=== PATIENT | male | born 2000 | race African-American/Black ===

== ENCOUNTER 2020-07-17 16:46 | Outpatient (REF) | payer OTHER, SELFPAY | END 2020-07-17 16:47 | disposition home or self-care (01) | LOC: HO.LAB 16:46 | PROVIDERS: Visit Provider Internal Medicine | DX: Z20.828 Contact with and (suspected) exposure to other viral communicable diseases (principal) | CPT/HCPCS: C9803; U0003 ==

== ENCOUNTER 2022-11-03 15:29 | Emergency (ER) | payer OTHER, SELFPAY ==
--- NOTE | 2022-11-03 15:39 | ED.NAVMDI ---
HPI - Nausea/Vomiting/Diarrhea General Chief complaint: Nausea/Vomiting/Diarrhea <Gabrielle Butler CNP - Last Filed: 11/03/22 15:42> Stated complaint: Vomiting <Gabrielle Butler CNP - Last Filed: 11/03/22 15:42> Time Seen by Provider: 11/03/22 17:54 <Gabrielle Butler CNP - Last Filed: 11/03/22 15:42> Source: patient and family <AUBREE Abdalla Last Filed: 11/03/22 18:51> Mode of arrival: ambulatory <AUBREE Abdalla Last Filed: 11/03/22 18:51> History of Present Illness HPI Narrative: 22-year-old male with no significant past medical history presenting to the ED complaining of nausea, vomiting, and diarrhea since 08:00AM this morning. Reports about 15 episodes of emesis, ending with some bloody streaked emesis. Admits to marijuana use. Admits to eating [employer] last night. Denies abdominal pain, fever, chills, dysuria/hematuria, EtOH/other illicit substance use, sick contacts, recent travel <AUBREE Abdalla Last Filed: 11/03/22 18:51> MD elicited complaint: nausea and vomiting <AUBREE Abdalla Last Filed: 11/03/22 18:51> Onset (ago): hour(s) <AUBREE Abdalla Last Filed: 11/03/22 18:51> Related Data Home medications: Previous Rx's Medication Instructions Recorded ondansetron 4 mg disintegrating 4 mg PO Q8H PRN nausea and 11/03/22 tablet vomiting #10 tabs <Gabrielle Butler CNP - Last Filed: 11/03/22 15:42> Allergies/Adverse reactions: Allergies Allergy/AdvReac Type Severity Reaction Status Date / Time No Known Allergies Allergy Unverified 05/16/20 18:20 <Gabrielle Butler CNP - Last Filed: 11/03/22 15:42> Review of Systems Review of Systems: Constitutional: No Fever, No Chills, No Fatigue, No Malaise ENT/Mouth: No Ear Pain, No Nasal Congestion, No sore throat, No Rhinorrhea Eyes: No Eye Pain, No Swelling, No Redness, No Vision Changes Cardiovascular: No Chest Pain, No SOB, No Palpitations Respiratory: No Cough, No Sputum, No Dyspnea Gastrointestinal: + Nausea, + Vomiting, + Diarrhea, No Constipation, No Abdominal pain Genitourinary: No Dysuria, No Urinary Frequency, No Hematuria, No Urinary Incontinence/retention, No Flank Pain Musculoskeletal: No joint pain, No Myalgias Skin: No Skin Lesions, No rash Neuro: No Weakness, No Dizziness, No Headache <AUBREE Abdalla - Last Filed: 11/03/22 18:51> Yes all other systems are reviewed and are negative <AUBREE Abdalla - Last Filed: 11/03/22 18:51> Constitutional: Constitutional: Reports as per HPI <AUBREE Abdalla - Last Filed: 11/03/22 18:51> [facility] Past Medical History Attestation statement: The following information was validated with the patient. <AUBREE Abdalla - Last Filed: 11/03/22 18:51> Social History Social History: Social History Advance Directives: No Advance Directives Information Provided: No <Gabrielle Butler CNP - Last Filed: 11/03/22 15:42> Physical Exam Vital Signs: Vital Signs: Last Vital Signs Temp 97.7 F 11/03/22 18:00 Pulse 76 11/03/22 18:00 Resp 16 11/03/22 18:00 BP 122/65 11/03/22 18:00 Pulse Ox 98 11/03/22 18:00 O2 Del Method 11/03/22 18:00 BMI result Body Mass Index 21.9 <Gabrielle Butler CNP - Last Filed: 11/03/22 15:42> Vital Signs: Last Vital Signs Temp 97.7 F 11/03/22 18:00 Pulse 76 11/03/22 18:00 Resp 16 11/03/22 18:00 BP 122/65 11/03/22 18:00 Pulse Ox 98 11/03/22 18:00 O2 Del Method 11/03/22 18:00 BMI result Body Mass Index 21.9 <AUBREE Abdalla Last Filed: 11/03/22 18:51> Vital Signs: Last Vital Signs Temp 97.7 F 11/03/22 18:00 Pulse 76 11/03/22 18:00 Resp 16 11/03/22 18:00 BP 122/65 11/03/22 18:00 Pulse Ox 98 11/03/22 18:00 O2 Del Method 11/03/22 18:00 BMI result Body Mass Index 21.9 <AUBREE Cuadra - Last Filed: 11/03/22 22:01> Const: General: cooperative, healthy appearing and no acute distress <AUBREE Abdalla - Last Filed: 11/03/22 18:51> Orientation/consciousness: patient oriented x3 <AUBREE Abdalla - Last Filed: 11/03/22 18:51> Limitations: no limitations <AUBREE Abdalla - Last Filed: 11/03/22 18:51> HEENT: Head: Yes normal to inspection and Yes atraumatic <AUBREE Abdalla - Last Filed: 11/03/22 18:51> Ears: hearing grossly normal bilaterally <AUBREE Abdalla - Last Filed: 11/03/22 18:51> General nose exam: Normal external nose present <AUBREE Abdalla - Last Filed: 11/03/22 18:51> Face and sinus: Yes normal facial exam <AUBREE Abdalla - Last Filed: 11/03/22 18:51> Eyes: General: appearance normal, both eyes and all related structures <AUBREE Abdalla - Last Filed: 11/03/22 18:51> EOM: EOMs intact bilaterally <AUBREE Abdalla - Last Filed: 11/03/22 18:51> Neck: Neck: Yes normal visual inspection and Yes no meningeal signs <AUBREE Abdalla - Last Filed: 11/03/22 18:51> Resp: Effort & Inspection: normal respiratory effort and no respiratory distress <AUBREE Abdalla - Last Filed: 11/03/22 18:51> Cardio: Rate: regular rate <AUBREE Abdalla - Last Filed: 11/03/22 18:51> GI: Inspection: Yes normal to inspection <Linda Kaur PA - Last Filed: 11/03/22 18:51> Palpation (GI): Soft to palpation, nontender, no guarding and not rigid <Linda Kaur PA - Last Filed: 11/03/22 18:51> : General: Yes no CVA tenderness <Linda Colet, PA - Last Filed: 11/03/22 18:51> Back/Spine/Pelvis: Back: no CVA tenderness <Linda Pouliot, PA - Last Filed: 11/03/22 18:51> Skin: Rashes: no rashes <Linda Colet, PA - Last Filed: 11/03/22 18:51> Wounds: no wounds <Linda Pouljewelt, PA - Last Filed: 11/03/22 18:51> Neuro: General: patient oriented x3, tone normal and no meningeal signs <Linda Kaur PA - Last Filed: 11/03/22 18:51> Gait exam (Neuro): Normal gait present <Linda Kaur PA - Last Filed: 11/03/22 18:51> Extrem: General: Yes normal to inspection <Linda Kaur PA - Last Filed: 11/03/22 18:51> Course Course Course Narrative: This is an RME: Additional HPI, ROS, PE not included below will be deferred to primary provider. Awoke at 0830 with nausea and vomiting >15 times today. States unable to keep anything down today including fluids. Last ate [employer] 2330 last night. Denies fevers, chills, abdominal pain, URI symptoms, known sick contacts. He endorses marajuana usage daily, denies any history of cyclical vomiting. Plan: viral testing, urszula OROZCO, PO trial <Gabrielle Butler CNP - Last Filed: 11/03/22 15:42> This is an RME: Additional HPI, ROS, PE not included below will be deferred to primary provider. Awoke at 0830 with nausea and vomiting >15 times today. States unable to keep anything down today including fluids. Last ate [employer] 2330 last night. Denies fevers, chills, abdominal pain, URI symptoms, known sick contacts. He endorses marajuana usage daily, denies any history of cyclical vomiting. Plan: viral testing, urszula SL, PO trial -COVID-19 and influenza negative -1845--leukocytosis of 16.6 > likely reactive from nausea/vomiting. Hemoconcentrated with a hemoglobin of 18.2/Hct 52.4 -BUN elevated to 26 > consistent with dehydration, no anion gap. T bili 3.0 >> will give patient 2 L IVF prior to discharge. Encouraged p.o. intake. Patient is well-appearing at this time, tolerating p.o. water/Gatorade -1900--ED care transferred to [facility] pending IVF, UA, and anticipated discharge home Results discussed with patient including worrisome signs and symptoms and strict return precautions, and when to return to the emergency department. They verbalized understanding and feel safe for discharge at this time. <AUBREE Abdalla - Last Filed: 11/03/22 18:51> Reevaluation(s) Reevaluation #1: Patient's UA without infection. IV fluids completely done. Patient feeling better per nursing. Patient was educated on diagnosis and treatment plan all patient questions were answered. At this time patient will be discharged home, advised to return with new or worsening symptoms. Educated on worrisome signs and symptoms and when to return. At this time I feel comfortable discharge home. <AUBREE Cuadra - Last Filed: 11/03/22 22:01> Time: 22:01 <AUBREE Cuadra - Last Filed: 11/03/22 22:01> Medications Administered Discontinued Medications Generic Name Dose Route Start Last Admin Trade Name Freq PRN Reason Stop Dose Admin Lactated Ringer's 1,000 mls @ 999 mls/hr 11/03/22 18:45 11/03/22 21:56 Lr IV 11/03/22 19:45 Infused .Q1H1M YAMEL Infusion Lactated Ringer's 1,000 mls @ 999 mls/hr 11/03/22 19:00 11/03/22 21:56 Lr IV 11/03/22 20:00 Infused .Q1H1M YAMEL Infusion Ondansetron HCl 4 mg 11/03/22 15:40 11/03/22 16:28 Ondansetron Odt 4 Mg Tab.Rapdis TRANSLINGU 11/03/22 15:41 4 mg ONCE ONE Administration <Gabrielle Butler CNP - Last Filed: 11/03/22 15:42> Medications Administered Discontinued Medications Generic Name Dose Route Start Last Admin Trade Name Freq PRN Reason Stop Dose Admin Lactated Ringer's 1,000 mls @ 999 mls/hr 11/03/22 18:45 11/03/22 21:56 Lr IV 11/03/22 19:45 Infused .Q1H1M YAMEL Infusion Lactated Ringer's 1,000 mls @ 999 mls/hr 11/03/22 19:00 11/03/22 21:56 Lr IV 11/03/22 20:00 Infused .Q1H1M YAMEL Infusion Ondansetron HCl 4 mg 11/03/22 15:40 11/03/22 16:28 Ondansetron Odt 4 Mg Tab.Rapdis TRANSLINGU 11/03/22 15:41 4 mg ONCE ONE Administration <AUBREE Abdalla - Last Filed: 11/03/22 18:51> Medications Administered Discontinued Medications Generic Name Dose Route Start Last Admin Trade Name Freq PRN Reason Stop Dose Admin Lactated Ringer's 1,000 mls @ 999 mls/hr 11/03/22 18:45 11/03/22 21:56 Lr IV 11/03/22 19:45 Infused .Q1H1M YAMEL Infusion Lactated Ringer's 1,000 mls @ 999 mls/hr 11/03/22 19:00 11/03/22 21:56 Lr IV 11/03/22 20:00 Infused .Q1H1M YAMEL Infusion Ondansetron HCl 4 mg 11/03/22 15:40 11/03/22 16:28 Ondansetron Odt 4 Mg Tab.Rapdis TRANSLINGU 11/03/22 15:41 4 mg ONCE ONE Administration <AUBREE Cuadra - Last Filed: 11/03/22 22:01> Medical Decision Making Medical Decision Making MDM Narrative: 22-year-old male with no significant past medical history presenting to the ED complaining of nausea, vomiting, and diarrhea since 08:00AM this morning. On exam vital signs stable, NAD, nontoxic appearing, abdomen soft nontender, no CVA tenderness. Concern for viral gastroenteritis vs food poisoning vs cyclical vomiting. Lower suspicion for [place]ave or appendicitis/diverticulitis/cholecystitis/cholelithiasis or PE Patient received sublingual Zofran in triage, currently tolerating p.o. Plan: Labs, UA, drug screen, continue to p.o. challenge Please refer to course for remaining clinical decision making, interpretation of labs/imaging results, and discussions with consultants and/or family members. <AUBREE Abdalla - Last Filed: 11/03/22 18:51> Differential Diagnosis Differential Diagnoses: The differential diagnosis associated with the presentation includes <AUBREE Abdalla - Last Filed: 11/03/22 18:51> as above <AUBREE Abdalla - Last Filed: 11/03/22 18:51> Lab Data MDM Lab Attestation statement: I reviewed the patient's lab results. <AUBREE Abdalla - Last Filed: 11/03/22 18:51> Result Diagrams: 11/03/22 18:18 11/03/22 18:18 <Gabrielle Butler CNP - Last Filed: 11/03/22 15:42> Labs: Lab Results 11/03/22 11/03/22 11/03/22 Range/Units 15:45 15:45 18:18 WBC 16.6 H (4.8-10.8) X10*3/uL RBC 5.95 H (4.60-5.80) X10*6/uL Hgb 18.2 H (14.0-18.0) g/dl Hct 52.4 H (42.0-52.0) % MCV 88.1 (80.0-98.0) fL MCH 30.6 (27.0-33.0) pg MCHC 34.7 (31.0-36.0) g/dl RDW 12.8 (11.0-16.0) % Plt Count 175 (160-400) X10*3/uL MPV 9.9 (9.4-12.4) fL Immature Gran % (Auto) 0.4 (0.0-0.4) % Neut % (Auto) 93.3 H (45-73) % Lymph % (Auto) 3.0 L (20-40) % Bradley % (Auto) 3.0 (2-11) % Eos % (Auto) 0.1 (0-4) % Baso % (Auto) 0.2 (0-2) % Lymph # (Auto) 0.5 L (1.2-4.9) X10*3/uL Bradley # (Auto) 0.5 (0.1-1.2) X10*3/uL Eos # (Auto) 0.0 (0.0-0.4) X10*3/uL Baso # (Auto) 0.0 (0.0-0.2) X10*3/uL Abs Immat Gran (auto) 0.07 H (0.00-0.03) X10*3/uL Absolute Neuts (auto) 15.5 H (2.0-8.3) x10*3/uL Absolute Nucleated RBC 0.000 (0.0-0.012) X10*3/uL Nucleated RBC % (auto) 0.0 (0.0-0.2) /100WBC Smear Tech's Comments VERIFIED Sodium (135-145) mmol/L Potassium (3.3-5.1) mmol/L Chloride (96-108) mmol/L Carbon Dioxide (22-29) mmol/L Anion Gap (12-20) BUN (9-16) mg/dL Creatinine (0.5-1.4) mg/dL Estim Creat Clear Calc Estimated GFR Random Glucose (60-115) mg/dL Calcium (8.4-10.2) mg/dL Magnesium (1.6-2.6) mg/dL Total Bilirubin (0.0-1.0) mg/dL Direct Bilirubin (0.0-0.5) mg/dL AST (5-37) U/L ALT (0-40) U/L Alkaline Phosphatase (39-117) U/L Total Protein (6.5-8.0) g/dL Albumin (3.5-5.0) g/dL Lipase (8-78) U/L Urine Color Urine Appearance Urine pH (5.0-9.0) Ur Specific [place] (1.005-1.025) Urine Protein (Neg-Trace) mg/dL Urine Glucose (UA) (Negative) mg/dL Urine Ketones (Negative) mg/dL Urine Blood (Negative) Urine Nitrite (Negative) Ur Leukocyte Esterase (Negative) Urine RBC (0-2) /HPF Urine WBC (0-5) /HPF Ur Squamous Epith Cells (0-2) /HPF Urine Bacteria (None Seen) Hyaline Casts (0-2) /LPF Urine Opiates Screen (Not Detect) Urine Fentanyl Screen (Not Detect) Ur Barbiturates Screen (Not Detect) Ur Phencyclidine Scrn (Not Detect) Ur Amphetamines Screen (Not Detect) U Benzodiazepines Scrn (Not Detect) Urine Cocaine Screen (Not Detect) U Marijuana (THC) Screen (Not Detect) COVID-19 (EAN) Negative (Negative) COVID-19 Clin Com See Note Influenza Type A (SRINIVAS) Negative (Negative) Influenza Type B (SRINIVAS) Negative (Negative) Influenza A & B Note See Note 11/03/22 11/03/22 11/03/22 Range/Units 18:18 21:04 21:10 WBC (4.8-10.8) X10*3/uL RBC (4.60-5.80) X10*6/uL Hgb (14.0-18.0) g/dl Hct (42.0-52.0) % MCV (80.0-98.0) fL MCH (27.0-33.0) pg MCHC (31.0-36.0) g/dl RDW (11.0-16.0) % Plt Count (160-400) X10*3/uL MPV (9.4-12.4) fL Immature Gran % (Auto) (0.0-0.4) % Neut % (Auto) (45-73) % Lymph % (Auto) (20-40) % Bradley % (Auto) (2-11) % Eos % (Auto) (0-4) % Baso % (Auto) (0-2) % Lymph # (Auto) (1.2-4.9) X10*3/uL Bradley # (Auto) (0.1-1.2) X10*3/uL Eos # (Auto) (0.0-0.4) X10*3/uL Baso # (Auto) (0.0-0.2) X10*3/uL Abs Immat Gran (auto) (0.00-0.03) X10*3/uL Absolute Neuts (auto) (2.0-8.3) x10*3/uL Absolute Nucleated RBC (0.0-0.012) X10*3/uL Nucleated RBC % (auto) (0.0-0.2) /100WBC Smear Tech's Comments Sodium 143 (135-145) mmol/L Potassium 4.3 (3.3-5.1) mmol/L Chloride 106 (96-108) mmol/L Carbon Dioxide 25 (22-29) mmol/L Anion Gap 16 (12-20) BUN 26 H (9-16) mg/dL Creatinine 1.03 (0.5-1.4) mg/dL Estim Creat Clear Calc 101.0 Estimated GFR > 60 Random Glucose 109 (60-115) mg/dL Calcium 10.0 (8.4-10.2) mg/dL Magnesium 2.0 (1.6-2.6) mg/dL Total Bilirubin 3.0 H (0.0-1.0) mg/dL Direct Bilirubin 0.5 (0.0-0.5) mg/dL AST 18 (5-37) U/L ALT 21 (0-40) U/L Alkaline Phosphatase 90 (39-117) U/L Total Protein 8.3 H (6.5-8.0) g/dL Albumin 5.4 H (3.5-5.0) g/dL Lipase 15 (8-78) U/L Urine Color Dark Yellow Urine Appearance Cloudy Urine pH 6.0 (5.0-9.0) Ur Specific [place] >= 1.030 H (1.005-1.025) Urine Protein 30 (1+) H (Neg-Trace) mg/dL Urine Glucose (UA) Negative (Negative) mg/dL Urine Ketones 40 (Negative) mg/dL Urine Blood Negative (Negative) Urine Nitrite Negative (Negative) Ur Leukocyte Esterase Trace H (Negative) Urine RBC 0-2 (0-2) /HPF Urine WBC 0-5 (0-5) /HPF Ur Squamous Epith Cells 0-2 (0-2) /HPF Urine Bacteria None Seen (None Seen) Hyaline Casts 3-5 (0-2) /LPF Urine Opiates Screen Not Detected (Not Detect) Urine Fentanyl Screen Not Detected (Not Detect) Ur Barbiturates Screen Not Detected (Not Detect) Ur Phencyclidine Scrn Not Detected (Not Detect) Ur Amphetamines Screen Not Detected (Not Detect) U Benzodiazepines Scrn Not Detected (Not Detect) Urine Cocaine Screen Not Detected (Not Detect) U Marijuana (THC) Screen POSITIVE H (Not Detect) COVID-19 (EAN) (Negative) COVID-19 Clin Com Influenza Type A (SRINIVAS) (Negative) Influenza Type B (SRINIVAS) (Negative) Influenza A & B Note <Gabrielle Butler CNP - Last Filed: 11/03/22 15:42> Lab Results 11/03/22 11/03/22 11/03/22 Range/Units 15:45 15:45 18:18 WBC 16.6 H (4.8-10.8) X10*3/uL RBC 5.95 H (4.60-5.80) X10*6/uL Hgb 18.2 H (14.0-18.0) g/dl Hct 52.4 H (42.0-52.0) % MCV 88.1 (80.0-98.0) fL MCH 30.6 (27.0-33.0) pg MCHC 34.7 (31.0-36.0) g/dl RDW 12.8 (11.0-16.0) % Plt Count 175 (160-400) X10*3/uL MPV 9.9 (9.4-12.4) fL Immature Gran % (Auto) 0.4 (0.0-0.4) % Neut % (Auto) 93.3 H (45-73) % Lymph % (Auto) 3.0 L (20-40) % Bradley % (Auto) 3.0 (2-11) % Eos % (Auto) 0.1 (0-4) % Baso % (Auto) 0.2 (0-2) % Lymph # (Auto) 0.5 L (1.2-4.9) X10*3/uL Bradley # (Auto) 0.5 (0.1-1.2) X10*3/uL Eos # (Auto) 0.0 (0.0-0.4) X10*3/uL Baso # (Auto) 0.0 (0.0-0.2) X10*3/uL Abs Immat Gran (auto) 0.07 H (0.00-0.03) X10*3/uL Absolute Neuts (auto) 15.5 H (2.0-8.3) x10*3/uL Absolute Nucleated RBC 0.000 (0.0-0.012) X10*3/uL Nucleated RBC % (auto) 0.0 (0.0-0.2) /100WBC Smear Tech's Comments VERIFIED Sodium (135-145) mmol/L Potassium (3.3-5.1) mmol/L Chloride (96-108) mmol/L Carbon Dioxide (22-29) mmol/L Anion Gap (12-20) BUN (9-16) mg/dL Creatinine (0.5-1.4) mg/dL Estim Creat Clear Calc Estimated GFR Random Glucose (60-115) mg/dL Calcium (8.4-10.2) mg/dL Magnesium (1.6-2.6) mg/dL Total Bilirubin (0.0-1.0) mg/dL Direct Bilirubin (0.0-0.5) mg/dL AST (5-37) U/L ALT (0-40) U/L Alkaline Phosphatase (39-117) U/L Total Protein (6.5-8.0) g/dL Albumin (3.5-5.0) g/dL Lipase (8-78) U/L Urine Color Urine Appearance Urine pH (5.0-9.0) Ur Specific [place] (1.005-1.025) Urine Protein (Neg-Trace) mg/dL Urine Glucose (UA) (Negative) mg/dL Urine Ketones (Negative) mg/dL Urine Blood (Negative) Urine Nitrite (Negative) Ur Leukocyte Esterase (Negative) Urine RBC (0-2) /HPF Urine WBC (0-5) /HPF Ur Squamous Epith Cells (0-2) /HPF Urine Bacteria (None Seen) Hyaline Casts (0-2) /LPF Urine Opiates Screen (Not Detect) Urine Fentanyl Screen (Not Detect) Ur Barbiturates Screen (Not Detect) Ur Phencyclidine Scrn (Not Detect) Ur Amphetamines Screen (Not Detect) U Benzodiazepines Scrn (Not Detect) Urine Cocaine Screen (Not Detect) U Marijuana (THC) Screen (Not Detect) COVID-19 (EAN) Negative (Negative) COVID-19 Clin Com See Note Influenza Type A (SRINIVAS) Negative (Negative) Influenza Type B (SRINIVAS) Negative (Negative) Influenza A & B Note See Note 11/03/22 11/03/22 11/03/22 Range/Units 18:18 21:04 21:10 WBC (4.8-10.8) X10*3/uL RBC (4.60-5.80) X10*6/uL Hgb (14.0-18.0) g/dl Hct (42.0-52.0) % MCV (80.0-98.0) fL MCH (27.0-33.0) pg MCHC (31.0-36.0) g/dl RDW (11.0-16.0) % Plt Count (160-400) X10*3/uL MPV (9.4-12.4) fL Immature Gran % (Auto) (0.0-0.4) % Neut % (Auto) (45-73) % Lymph % (Auto) (20-40) % Bradley % (Auto) (2-11) % Eos % (Auto) (0-4) % Baso % (Auto) (0-2) % Lymph # (Auto) (1.2-4.9) X10*3/uL Bradley # (Auto) (0.1-1.2) X10*3/uL Eos # (Auto) (0.0-0.4) X10*3/uL Baso # (Auto) (0.0-0.2) X10*3/uL Abs Immat Gran (auto) (0.00-0.03) X10*3/uL Absolute Neuts (auto) (2.0-8.3) x10*3/uL Absolute Nucleated RBC (0.0-0.012) X10*3/uL Nucleated RBC % (auto) (0.0-0.2) /100WBC Smear Tech's Comments Sodium 143 (135-145) mmol/L Potassium 4.3 (3.3-5.1) mmol/L Chloride 106 (96-108) mmol/L Carbon Dioxide 25 (22-29) mmol/L Anion Gap 16 (12-20) BUN 26 H (9-16) mg/dL Creatinine 1.03 (0.5-1.4) mg/dL Estim Creat Clear Calc 101.0 Estimated GFR > 60 Random Glucose 109 (60-115) mg/dL Calcium 10.0 (8.4-10.2) mg/dL Magnesium 2.0 (1.6-2.6) mg/dL Total Bilirubin 3.0 H (0.0-1.0) mg/dL Direct Bilirubin 0.5 (0.0-0.5) mg/dL AST 18 (5-37) U/L ALT 21 (0-40) U/L Alkaline Phosphatase 90 (39-117) U/L Total Protein 8.3 H (6.5-8.0) g/dL Albumin 5.4 H (3.5-5.0) g/dL Lipase 15 (8-78) U/L Urine Color Dark Yellow Urine Appearance Cloudy Urine pH 6.0 (5.0-9.0) Ur Specific [place] >= 1.030 H (1.005-1.025) Urine Protein 30 (1+) H (Neg-Trace) mg/dL Urine Glucose (UA) Negative (Negative) mg/dL Urine Ketones 40 (Negative) mg/dL Urine Blood Negative (Negative) Urine Nitrite Negative (Negative) Ur Leukocyte Esterase Trace H (Negative) Urine RBC 0-2 (0-2) /HPF Urine WBC 0-5 (0-5) /HPF Ur Squamous Epith Cells 0-2 (0-2) /HPF Urine Bacteria None Seen (None Seen) Hyaline Casts 3-5 (0-2) /LPF Urine Opiates Screen Not Detected (Not Detect) Urine Fentanyl Screen Not Detected (Not Detect) Ur Barbiturates Screen Not Detected (Not Detect) Ur Phencyclidine Scrn Not Detected (Not Detect) Ur Amphetamines Screen Not Detected (Not Detect) U Benzodiazepines Scrn Not Detected (Not Detect) Urine Cocaine Screen Not Detected (Not Detect) U Marijuana (THC) Screen POSITIVE H (Not Detect) COVID-19 (EAN) (Negative) COVID-19 Clin Com Influenza Type A (SRIINVAS) (Negative) Influenza Type B (SRINIVAS) (Negative) Influenza A & B Note <AUBREE Abdalla - Last Filed: 11/03/22 18:51> Lab Results 11/03/22 11/03/22 11/03/22 Range/Units 15:45 15:45 18:18 WBC 16.6 H (4.8-10.8) X10*3/uL RBC 5.95 H (4.60-5.80) X10*6/uL Hgb 18.2 H (14.0-18.0) g/dl Hct 52.4 H (42.0-52.0) % MCV 88.1 (80.0-98.0) fL MCH 30.6 (27.0-33.0) pg MCHC 34.7 (31.0-36.0) g/dl RDW 12.8 (11.0-16.0) % Plt Count 175 (160-400) X10*3/uL MPV 9.9 (9.4-12.4) fL Immature Gran % (Auto) 0.4 (0.0-0.4) % Neut % (Auto) 93.3 H (45-73) % Lymph % (Auto) 3.0 L (20-40) % Bradley % (Auto) 3.0 (2-11) % Eos % (Auto) 0.1 (0-4) % Baso % (Auto) 0.2 (0-2) % Lymph # (Auto) 0.5 L (1.2-4.9) X10*3/uL Bradley # (Auto) 0.5 (0.1-1.2) X10*3/uL Eos # (Auto) 0.0 (0.0-0.4) X10*3/uL Baso # (Auto) 0.0 (0.0-0.2) X10*3/uL Abs Immat Gran (auto) 0.07 H (0.00-0.03) X10*3/uL Absolute Neuts (auto) 15.5 H (2.0-8.3) x10*3/uL Absolute Nucleated RBC 0.000 (0.0-0.012) X10*3/uL Nucleated RBC % (auto) 0.0 (0.0-0.2) /100WBC Smear Tech's Comments VERIFIED Sodium (135-145) mmol/L Potassium (3.3-5.1) mmol/L Chloride (96-108) mmol/L Carbon Dioxide (22-29) mmol/L Anion Gap (12-20) BUN (9-16) mg/dL Creatinine (0.5-1.4) mg/dL Estim Creat Clear Calc Estimated GFR Random Glucose (60-115) mg/dL Calcium (8.4-10.2) mg/dL Magnesium (1.6-2.6) mg/dL Total Bilirubin (0.0-1.0) mg/dL Direct Bilirubin (0.0-0.5) mg/dL AST (5-37) U/L ALT (0-40) U/L Alkaline Phosphatase (39-117) U/L Total Protein (6.5-8.0) g/dL Albumin (3.5-5.0) g/dL Lipase (8-78) U/L Urine Color Urine Appearance Urine pH (5.0-9.0) Ur Specific [place] (1.005-1.025) Urine Protein (Neg-Trace) mg/dL Urine Glucose (UA) (Negative) mg/dL Urine Ketones (Negative) mg/dL Urine Blood (Negative) Urine Nitrite (Negative) Ur Leukocyte Esterase (Negative) Urine RBC (0-2) /HPF Urine WBC (0-5) /HPF Ur Squamous Epith Cells (0-2) /HPF Urine Bacteria (None Seen) Hyaline Casts (0-2) /LPF Urine Opiates Screen (Not Detect) Urine Fentanyl Screen (Not Detect) Ur Barbiturates Screen (Not Detect) Ur Phencyclidine Scrn (Not Detect) Ur Amphetamines Screen (Not Detect) U Benzodiazepines Scrn (Not Detect) Urine Cocaine Screen (Not Detect) U Marijuana (THC) Screen (Not Detect) COVID-19 (EAN) Negative (Negative) COVID-19 Clin Com See Note Influenza Type A (SRINIVAS) Negative (Negative) Influenza Type B (SRINIVAS) Negative (Negative) Influenza A & B Note See Note 11/03/22 11/03/22 11/03/22 Range/Units 18:18 21:04 21:10 WBC (4.8-10.8) X10*3/uL RBC (4.60-5.80) X10*6/uL Hgb (14.0-18.0) g/dl Hct (42.0-52.0) % MCV (80.0-98.0) fL MCH (27.0-33.0) pg MCHC (31.0-36.0) g/dl RDW (11.0-16.0) % Plt Count (160-400) X10*3/uL MPV (9.4-12.4) fL Immature Gran % (Auto) (0.0-0.4) % Neut % (Auto) (45-73) % Lymph % (Auto) (20-40) % Bradley % (Auto) (2-11) % Eos % (Auto) (0-4) % Baso % (Auto) (0-2) % Lymph # (Auto) (1.2-4.9) X10*3/uL [place] # (Auto) (0.1-1.2) X10*3/uL Eos # (Auto) (0.0-0.4) X10*3/uL Baso # (Auto) (0.0-0.2) X10*3/uL Abs Immat Gran (auto) (0.00-0.03) X10*3/uL Absolute Neuts (auto) (2.0-8.3) x10*3/uL Absolute Nucleated RBC (0.0-0.012) X10*3/uL Nucleated RBC % (auto) (0.0-0.2) /100WBC Smear Tech's Comments Sodium 143 (135-145) mmol/L Potassium 4.3 (3.3-5.1) mmol/L Chloride 106 (96-108) mmol/L Carbon Dioxide 25 (22-29) mmol/L Anion Gap 16 (12-20) BUN 26 H (9-16) mg/dL Creatinine 1.03 (0.5-1.4) mg/dL Estim Creat Clear Calc 101.0 Estimated GFR > 60 Random Glucose 109 (60-115) mg/dL Calcium 10.0 (8.4-10.2) mg/dL Magnesium 2.0 (1.6-2.6) mg/dL Total Bilirubin 3.0 H (0.0-1.0) mg/dL Direct Bilirubin 0.5 (0.0-0.5) mg/dL AST 18 (5-37) U/L ALT 21 (0-40) U/L Alkaline Phosphatase 90 (39-117) U/L Total Protein 8.3 H (6.5-8.0) g/dL Albumin 5.4 H (3.5-5.0) g/dL Lipase 15 (8-78) U/L Urine Color Dark Yellow Urine Appearance Cloudy Urine pH 6.0 (5.0-9.0) Ur Specific [place] >= 1.030 H (1.005-1.025) Urine Protein 30 (1+) H (Neg-Trace) mg/dL Urine Glucose (UA) Negative (Negative) mg/dL Urine Ketones 40 (Negative) mg/dL Urine Blood Negative (Negative) Urine Nitrite Negative (Negative) Ur Leukocyte Esterase Trace H (Negative) Urine RBC 0-2 (0-2) /HPF Urine WBC 0-5 (0-5) /HPF Ur Squamous Epith Cells 0-2 (0-2) /HPF Urine Bacteria None Seen (None Seen) Hyaline Casts 3-5 (0-2) /LPF Urine Opiates Screen Not Detected (Not Detect) Urine Fentanyl Screen Not Detected (Not Detect) Ur Barbiturates Screen Not Detected (Not Detect) Ur Phencyclidine Scrn Not Detected (Not Detect) Ur Amphetamines Screen Not Detected (Not Detect) U Benzodiazepines Scrn Not Detected (Not Detect) Urine Cocaine Screen Not Detected (Not Detect) U Marijuana (THC) Screen POSITIVE H (Not Detect) COVID-19 (EAN) (Negative) COVID-19 Clin Com Influenza Type A (SRINIVAS) (Negative) Influenza Type B (SRINIVAS) (Negative) Influenza A & B Note <AUBREE Cuadra - Last Filed: 11/03/22 22:01> Radiology Impression Discussion of test interpretation with radiology: I have reviewed the radiologist's reading. <AUBREE Abdalla - Last Filed: 11/03/22 18:51> Discharge Plan Discharge Clinical Impression: Gastroenteritis <Gabrielle Butler CNP - Last Filed: 11/03/22 15:42> Patient Disposition: Home, Self-Care <Gabrielle Butler CNP - Last Filed: 11/03/22 15:42> Instructions: Gastroenteritis (ED) <Gabrielle Butler CNP - Last Filed: 11/03/22 15:42> Additional Instructions: Your blood work shows your very dehydrated Zofran as antinausea medication, take as needed You need to drink plenty of fluids at home, water, Gatorade, Pedialyte If your unable to tolerate drink or food, persistent nausea, vomiting, fever return to the emergency department Follow-up with her doctor Avoid marijuana use <Gabrielle Butler CNP - Last Filed: 11/03/22 15:42> Prescriptions: New ondansetron 4 mg tablet,disintegrating 4 mg PO Q8H PRN (Reason: nausea and vomiting) Qty: 10 0RF <Gabrielle Butler CNP - Last Filed: 11/03/22 15:42> Referrals: Physician,Unknown J [Primary Care Provider] - 5 days <Gabrielle Butler CNP - Last Filed: 11/03/22 15:42> Stand Alone Forms: Work/School Release <Gabrielle Butler CNP - Last Filed: 11/03/22 15:42>
[2022-11-03 15:41] VITALS: BP 140/77; PULSE 78; RESP 18; TEMP 36.3; O2SAT 95; BMI 21.9
[2022-11-03 16:11] LABS: IDNOW Serial# 9DB6401D; IDNOW Serial# BCCEAD1C; Influenza A Negative (Negative); Influenza B2 Negative (Negative)
[2022-11-03 16:12] LABS: COVID-19 Test Negative (Negative)
[2022-11-03] MEDS: Ondansetron ODT 4 MG TAB.RAPDIS TRANSLINGU (16:28)
[2022-11-03 18:00] VITALS: BP 122/65; PULSE 76; RESP 16; TEMP 36.5; O2SAT 98
[2022-11-03 18:26] LABS: Basophils Percent Auto 0.2 % (0-2); Eosinophils Percent Auto 0.1 % (0-4); Imm Gran Pct Auto 0.4 % (0.0-0.4); MANUAL DIFF FLAG SCAN; Mean Corpuscular Volume 88.1 fL (80.0-98.0); PLT CLUMP 1; SCAN SMEAR FLAG 1
[2022-11-03 18:28] LABS: Hematocrit 52.4 % (42.0-52.0); Hemoglobin 18.2 g/dl (14.0-18.0); Imm Gran Abs Auto 0.07 X10*3/uL (0.00-0.03); Lymphocytes Absolute Auto 0.5 X10*3/uL (1.2-4.9); Mean Corpuscular HGB Conc 34.7 g/dl (31.0-36.0); Mean Corpuscular Hemoglobin 30.6 pg (27.0-33.0); Mean Platelet Volume 9.9 fL (9.4-12.4); Monocytes Absolute Auto 0.5 X10*3/uL (0.1-1.2); Neutrophils Absolute Auto 15.5 x10*3/uL (2.0-8.3); Neutrophils Percent Auto 93.3 % (45-73); Red Blood Count 5.95 X10*6/uL (4.60-5.80); Red Cell Distribution Width 12.8 % (11.0-16.0)
[2022-11-03 18:34] LABS: White Blood Count 16.6 X10*3/uL (4.8-10.8)
[2022-11-03 18:41] LABS: Alanine Aminotransferase 21 U/L (0-40); Albumin Level 5.4 g/dL (3.5-5.0); Alkaline Phosphatase 90 U/L (39-117); Anion Gap 16 (12-20); Aspartate Amino Transferase 18 U/L (5-37); Bilirubin Direct 0.5 mg/dL (0.0-0.5); Blood Urea Nitrogen 26 mg/dL (9-16); Carbon Dioxide 25 mmol/L (22-29); Chloride 106 mmol/L (96-108); Estimated Glomerular Filt Rate > 60; Glucose Random 109 mg/dL (60-115); Lipase 15 U/L (8-78); Potassium 4.3 mmol/L (3.3-5.1); Sodium 143 mmol/L (135-145); Total Protein 8.3 g/dL (6.5-8.0)
[2022-11-03 18:52] LABS: Platelet Count 175 X10*3/uL (160-400); SLIDE REVIEW VERIFIED
[2022-11-03] MEDS: Lactated Ringers 1,000 ML 999 ML IV ×2 (19:00)
--- NOTE | 2022-11-03 19:04 | PC.NURSE ---
20g IV line placed in right medial AC, infusing 2L LR. plan is to discharge once completed- pt and mother aware of plan, call blanco within reach, will need UA once pt is able [facility]
--- NOTE | 2022-11-03 19:24 | PC.NURSE ---
IV line infiltrated in right AC, reestablished access in left forearm with 22g- infusing LR as ordered. waiting for urine from patient- call blanco within reach [facility]
[2022-11-03 21:16] LABS: Appearance Urine Cloudy; Color Urine Dark Yellow; Glucose Urine UA Negative (Negative); Leukocyte Esterase Urine Trace (Negative); Nitrite Urine Negative (Negative); Specific Gravity - Urine >= 1.030 (1.005-1.025); UMIC TRIGGER UACC YES; Urine Blood Negative (Negative); Urine Ketones 40 mg/dL (Negative); Urine Protein 30 (1+) mg/dL (Neg-Trace)
[2022-11-03 21:26] LABS: Amphetamine Screen Urine Not Detected (Not Detect); Barbiturates, Urine Not Detected (Not Detect); Benzodiazepines Screen Urine Not Detected (Not Detect); Cannabinoid Screen Urine POSITIVE (Not Detect); Cocaine Screen Urine Not Detected (Not Detect); Fentanyl, urine Not Detected (Not Detect); Opiate Screen Urine Not Detected (Not Detect); Phencyclidine Screen Urine Not Detected (Not Detect)
[2022-11-03 21:28] LABS: Bacteria Urine None Seen (None Seen); RBC Urine 0-2 /HPF (0-2); Squamous Epithelial Cell Urine 0-2 /HPF (0-2); WBC Urine 0-5 /HPF (0-5)
== END 2022-11-03 22:17 | disposition home or self-care (01) ==
PROVIDERS: Nurse Practitioner Family; Physician Assistant; Emergency Provider Emergency Medicine
DX: K52.9 Noninfective gastroenteritis and colitis, unspecified (principal); Z20.822 Contact with and (suspected) exposure to COVID-19; Z20.828 Contact with and (suspected) exposure to other viral communicable diseases; Z79.899 Other long term (current) drug therapy
CPT/HCPCS: 36415; 80048; 80076; 80307; 81001; 83690; 83735; 85025; 87502; 87635; 96360; 96361; 99283; 99284